=== PATIENT | male | born 1965 | race Two or more races ===

== ENCOUNTER 2025-03-24 11:13 | Emergency (ER) | payer MEDICAID, SELFPAY ==
[2025-03-24 12:03] VITALS: BP 115/80; PULSE 103; RESP 17; TEMP 36.9; O2SAT 98; BMI 22.4
--- NOTE | 2025-03-24 12:06 | XR_ITS ---
Examination: CT abdomen and pelvis without contrast. Coronal 3-D reconstructions. Sagittal 2-D reconstructions. Date and time of exam: March 24, 2025, 1254 hours INDICATIONS: Onset left-sided flank pain beginning 3 days ago CTDI: vol (mGy): 5.61 DLP: (mGycm): 340 Technique: Axial images of the abdomen have been obtained, 3 mm slice thickness Intravenous contrast material has not been administered. Low dose protocols were performed. One or more of the following dose reduction techniques were used; automated exposure control, adjustment of the mA and/or KV according to patient size, use of iterative reconstruction technique. Findings: Pneumonia left base Moderate left pleural fluid No visualized liver or splenic lesion Enlargement in the region of the body and tail of pancreas Mass of enlargement left kidney with necrotic solid mass measuring at least 10 cm in dimension There appear to be multiple periaortic pericaval lymph nodes Mild ascites Normal appendix Marked left pelvic lymphadenopathy Urinary bladder intact IMPRESSION: Limited noncontrast study Recommend repeat CT scan abdomen pelvis postcontrast to assess for mass involving the pancreas and also very large necrotic mass involving the left kidney with extensive abdominal pelvic lymphadenopathy
--- NOTE | 2025-03-24 12:07 | PD.EDRME ---
Rapid Medical Screening Exam RME Arrival date/time: 03/24/25 11:13 59-year-old male with no known medical history presents to the emergency room with a chief complaint of left flank pain and abdominal pain x 1 week I have greeted and performed a focused initial assessment of this patient. A comprehensive ED assessment and evaluation of the patient, analysis of all test results, and completion of the medical decision making process will be conducted by additional ED providers. Chief Complaint: Urogenital-Male Time Seen by Provider: 03/24/25 11:38 Vital signs: Vital Signs Temperature 98.4 F 03/24/25 12:03 Pulse Rate 103 H 03/24/25 12:03 Respiratory Rate 17 03/24/25 12:03 Blood Pressure 115/80 03/24/25 12:03 Pulse Oximetry (%) 98 03/24/25 12:03 Vital signs reviewed by provider: Yes Exam: Left CVA tenderness with palpation, epigastric abdominal pain with palpation Clear bilateral lung sounds Clinical Impression: Pyelonephritis/UTI/renal calculi
[2025-03-24] MEDS: HYDROcodone/APAP 5/325 TABLET 1 TAB PO (12:34)
[2025-03-24 12:46] LABS: Basophils # (Auto) 0.1 Thou/mm3 (0.0-0.2); Basophils % (Auto) 1 % (0-2.5); Eosinophils # (Auto) 0.1 Thou/mm3 (0.0-0.5); Eosinophils % (Auto) 1 % (0-10); Hematocrit 32.0 % (41.0-53.0); Hemoglobin 10.2 g/dL (13.5-16.0); Immature Granulocytes Auto 0.09 Thou/mm3 (0.00-0.00); Lymphocytes # (Auto) 2.1 Thou/mm3 (1.0-4.8); Lymphocytes % (Auto) 17 % (10-50); Mean Corpuscular HGB Conc 31.9 g/dl (31.0-37.0); Mean Corpuscular Hemoglobin 26.2 pg (25.0-35.0); Mean Corpuscular Volume 82 fL (80-100); Monocytes # (Auto) 1.0 Thou/mm3 (0.0-0.8); Monocytes % (Auto) 8 % (0-12); Neutrophils # (Auto) 8.6 Thou/mm3 (1.8-7.7); Neutrophils % (Auto) 73 % (37-80); Nucleated Red Blood Cell # 0.00 Thou/mm3 (0.00-0.00); Nucleated Red Blood Cell % 0 /100 WBC (0); Platelet Count 477 Thou/mm3 (140-440); RDW Standard Deviation 44.3 fL (35.1-43.9); Red Blood Count 3.90 Miln/mm3 (4.50-5.90); White Blood Count 11.8 Thou/mm3 (3.8-10.6)
[2025-03-24 13:06] LABS: Alanine Aminotransferase < 7 U/L (10-49); Albumin, Serum 4.6 gm/dL (3.4-4.8); Albumin/Globulin Ratio 1.5 (1.2-2.2); Alkaline Phosphatase 121 U/L (46-116); Anion Gap 10 (7-16); Aspartate Amino Transferase 15 U/L (0-34); BUN/Creatinine Ratio 16 Ratio (12-20); Bilirubin,Total 0.3 mg/dL (0.3-1.2); Blood Urea Nitrogen 11 mg/dL (9-23); Calcium 9.3 mg/dL (8.3-10.6); Calcium (Corrected) 9.3 mg/dL (8.5-10.1); Carbon Dioxide 26.2 mMol/L (20.0-31.0); Chloride 98 mMol/L (98-107); Creatinine (Component) 0.7 mg/dL (0.6-1.3); Estimated Creatinine Clearance 97.0 mL/min (>60); Globulin 3.1 gm/dL (2.3-3.5); Glucose 169 mg/dL (74-106); Lipase 48 U/L (12-53); Osmolality,Calculated 271 (275-295); Potassium 4.0 mMol/L (3.4-5.1); Sodium 134 mMol/L (136-145); Total Protein 7.7 gm/dL (5.7-8.2); eGFR > 60 See Note
[2025-03-24 13:52] LABS: Collection Type, Urine Clean Catch; Squamous Epithelial Cell,Urine 0 /hpf (0-5)
[2025-03-24 14:05] LABS: Bilirubin,Urine Negative (Negative); Blood,Urine Negative (Negative); Clarity,Urine Clear (Clear/Hazy); Color,Urine Yellow (Lt Yel-Yel); Glucose, Urine 2+ (Negative); Hyaline Casts,Urine < 1 /hpf (0-1); Ketones,Urine Negative (Negative); Leukocyte Esterase,Urine Negative (Negative); Nitrite,Urine Negative (Negative); PH,Urine 6.0 (5.0-7.0); Protein,Urine 1+ (Neg - Trace); RBC,Urine 2 /hpf (0-3); Specific Gravity,Urine 1.020 (1.001-1.035); Urobilinogen,Urine Negative mg/dL (0.0-1.0); WBC,Urine < 1 /hpf (0-5)
[2025-03-24 15:14] VITALS: BP 109/65; PULSE 100; RESP 18; TEMP 36.6; O2SAT 96
--- NOTE | 2025-03-24 15:32 | XR_ITS ---
Examination: CT abdomen with intravenous contrast CT pelvis with intravenous contrast 2-D coronal reconstructions 2-D sagittal reconstructions Date and time of exam: March 24, 2025, 1732 hours INDICATIONS: Left flank pain left lower abdominal pain beginning today. CTDI: vol (mGy) 5.73 DLP: (mGycm) 347 Technique: Multiple axial sections of the abdomen and pelvis have been obtained. 64 slice high-resolution scanner used. 3 mm axial sections have been obtained, post intravenous injection 60 cc Isovue 370 2-D sagittal, coronal reconstructions obtained. Low dose protocols were performed. One or more of the following dose reduction techniques were used; automated exposure control, adjustment of the mA and/or KV according to patient size, use of iterative reconstruction technique. Findings: Pneumonia left base with moderate left pleural effusion No visualized liver or splenic lesion Edema surrounding a diffusely enlarged pancreas Necrotic upper pole left renal mass, at least 12 x 19 x 11 cm Extensive mesenteric periaortic pericaval lymphadenopathy Markedly narrowed left renal vein versus tumor thrombus in the left renal vein Calcified wall of the gallbladder Bilateral common iliac adenopathy Fluid extends into the left pelvis Normal seminal vesicles Mild prostatomegaly Fat-containing inguinal hernias Moderate osteopenia IMPRESSION: Pneumonia left base with moderate left pleural effusion Edema surrounding the pancreas, consider acute pancreatitis 12 x 19 x 11 cm necrotic upper pole left renal mass Suspicious for tumor thrombus in the left renal vein Extensive abdominal mesenteric and pelvic lymphadenopathy Recommend MRI abdomen pelvis follow-up for staging pre and postcontrast
--- NOTE | 2025-03-24 15:34 | PD.EDADULT ---
ED General RME/HPI General Chief complaint: Urogenital-Male Stated complaint: L FLANK PAIN Time Seen by Provider: 03/24/25 11:38 Arrival date/time: 03/24/25 11:13 CC: Left flank pain left upper quadrant abdominal pain HPI onset 1 year ago with progressive increase in severity became severe in the last 24 hours now rating the pain a 10 out of 10. However at the time of the assessment the patient been given a Percocet currently the pain is a 3 on a 10 scale. Patient states pain been is intense enough to vomit at home. Patient denies bloody urination painful urination inability urinate constipation diarrhea chest pain shortness of breath or difficulty breathing. Patient is has a history of diabetes hypertension. RME / HPI RME / HPI narrative: 03/24/25 11:13 59-year-old male with no known medical history presents to the emergency room with a chief complaint of left flank pain and abdominal pain x 1 week I have greeted and performed a focused initial assessment of this patient. A comprehensive ED assessment and evaluation of the patient, analysis of all test results, and completion of the medical decision making process will be conducted by additional ED providers. Exam: Left CVA tenderness with palpation, epigastric abdominal pain with palpation Clear bilateral lung sounds Impression: Pyelonephritis/UTI/renal calculi Related Data Home Medications ?Medication ?Instructions ?Recorded ?Confirmed dapagliflozin propanediol 5 mg 5 mg PO QAM 03/24/25 03/24/25 tablet (Farxiga) ergocalciferol (vitamin D2) 1,250 1,250 mcg PO QWEEK 03/24/25 03/24/25 mcg (50,000 unit) capsule ferrous fumarate 325 mg (106 mg 325 mg PO QDAY 03/24/25 03/24/25 iron) tablet lisinopril 10 mg tablet 10 mg PO QDAY 03/24/25 03/24/25 naproxen 500 mg tablet 500 mg PO Q12H PRN pain 03/24/25 03/24/25 Allergies Allergy/AdvReac Type Severity Reaction Status Date / Time No Known Allergies Allergy Verified 03/24/25 11:16 Review of Systems Review of Systems Narrative Review of Systems: GEN: No fever, no chills, no weight loss EYES: No discharge, no visual changes, no pain HEENT: No ear pain, no congestion, no sore throat PULM: No shortness of breath, no cough, no congestion CV: No chest pain, no dyspnea on exertion, no palpitations GI: No nausea, no vomiting, no diarrhea, + pain, no constipation : No frequency, no urgency, no dysuria MUSC/SKEL: No joint pain, no back pain SKIN: No rash PSYCH: No hallucinations, no depression HEME/LYMPH: No easy bleeding or bruising tendencies NEURO: No weakness, no headache ED Exam Narrative Physical exam: [General: Thin but not emaciated, not in any acute distress Head normocephalic HEENT: Eyes, 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 Left eye tracking well. Mouth pink dry membranes uvula is midline swallow symmetrical phonation is normal all the subsystems of HEENT are within acceptable limits Neck is supple nontender no LAD no edema Chest equal chest rise nontender to palpation Respiratory: Clear to auscultation no wheezes crackles or rubs CV: Rate rhythm is regular no murmurs rubs or clicks Abdomen is slightly distended secondary soft tenderness in the left upper quadrant. Exquisite tenderness with flank palpation. Back: + left CVA tenderness no right sided CVA tenderness. No spinous process tenderness from cervical spine thoracic and lumbar spine Skin: Intact no petechiae rash induration ulceration or crepitus Extremities: Moving all extremity against resistance cap refill less than 2 seconds neurosensory intact Neuro: Awake alert oriented x3 Glascow coma 15 no focal deficits] Course Course Course Narrative: This is all new finding, family members mention that the patient is on iron pills secondary to anemia. I suspect the anemia is related to this necrotic mass. CT of the abdomen and pelvis with IV contrast shows that the patient has a 12 x 19 x 11 cm necrotic upper pole left renal mass also suspicious for a tumor thrombus in the left renal vein. Finally the patient also has extensive adeno mesenteric and pelvic lymph and adenopathy. At this time we will transfer for higher level nephrology consider possible nephrectomy Patient's case clinical presentation presented to [facility], and [facility]. He will decline the patient at [facility]'s urology's, Dr. Charles, stated the patient needs nephrectomy staging and an IVC and they are not able to provide the services they recommend [facility] or [facility]. Report on the patient's condition given to [facility] at 2052. Awaiting callback. At 2226, spoke with Dr. Bueno, urologist on-call at [facility] who stated this patient does not need emergent nephrectomy rather needs to be seen by oncology and urology, on an outpatient basis as his vital signs and laboratory findings are essentially stable. Therefore [facility] declines transfer. At 2239 Had a lengthy discussion with son of the patient, stating we have declines from tertiary center to receive the patient as it is not of an emergent nature but more of an urgent nature. And that I was advised as stated above from the urologist that he needs to follow-up outpatient urology set up for further workup. At this time I will discharge the patient home with pain medication and antibiotics. The patient's son declined this stating he is going to take the patient and drive directly to a tertiary care center. Quality Measures none Orders Category Date Time Status CT Screening NOW Care 03/24/25 15:32 Active Referral - Network Control Operators Supervisor Stat Cons 03/24/25 18:[address] abdomen pelvis w con Stat Exams 03/24/25 15:[address] abdomen pelvis wo con Stat Exams 03/24/25 12:06 Completed CBC Stat Lab 03/24/25 12:13 Completed CMP [Comprehensive Metabolic Panel] Stat Lab 03/24/25 12:13 Completed Lipase Stat Lab 03/24/25 12:13 Completed UA [Urinalysis] Stat Lab 03/24/25 13:46 Completed Urine Culture Stat Lab 03/24/25 13:46 Received HYDROcodone*/APAP 5/325 [[place] 5/325] Med 03/24/25 12:27 Discontinued 1 tab PO X1 ONE HYDROcodone/APAP 10/325 [[place] 10/325] Med 03/24/25 22:52 Once 1 tab PO X1 ONE HYDROmorphone INJ [Dilaudid Inj] Med 03/24/25 20:34 Discontinued 1 mg IVP X1 ONE Morphine* Inj Med 03/24/25 19:46 Discontinued 4 mg IVP X1 ONE Piper/Tazo 3.375 gm Premix [Zosyn] Med 03/24/25 22:53 Ordered 3.375 gm in 50 ml IV X1 Ringers Lactated 1000 ml [Lactated Ringers] 1,000 ml Med 03/24/25 17:52 Discontinued IV 999 mls/hr Ringers Lactated 1000 ml [Lactated Ringers] 1,000 ml Med 03/24/25 17:54 Discontinued IV 999 mls/hr Ringers Lactated 500 ml [Lactated Ringers] 500 ml Med 03/24/25 17:52 Discontinued IV 999 mls/hr cefTRIAXone/D5w 1gm IV premix [Rocephin/D5w 1gm IV Med 03/24/25 15:41 Discontinued premix] 1 gm in 50 ml IV X1 Vital Signs Vital signs: Vital Signs Temperature 98.4 F 03/24/25 12:03 Pulse Rate 103 H 03/24/25 12:03 Respiratory Rate 17 03/24/25 12:03 Blood Pressure 115/80 03/24/25 12:03 Pulse Oximetry (%) 98 03/24/25 12:03 Discharge Plan Plan Patient Disposition: HOME (Self Care) Patient condition on transfer: Stable Prescriptions/Referrals Prescriptions/Med Rec: No Action ergocalciferol (vitamin D2) 1,250 mcg (50,000 unit) capsule 1,250 mcg PO QWEEK naproxen 500 mg tablet 500 mg PO Q12H PRN (Reason: pain) Patient Comments: TAKE 1 TABLET BY MOUTH EVERY 12 HOURS WITH FOOD NEEDED FOR PAIN AND SWELLING ferrous fumarate 325 mg (106 mg iron) tablet 325 mg PO QDAY lisinopril 10 mg tablet 10 mg PO QDAY dapagliflozin propanediol [Farxiga] 5 mg tablet 5 mg PO QAM Referrals: Tutu Granados FNP [Primary Care Provider] - In 1 week Problem List Clinical Impression: Kidney mass, Abdominal pain Patient/Caregiver Discharge Instructions Education Materials: Abdominal Pain Additional Instructions: Follow-up with your primary care doctor, get a referral for oncology and/or urology. If is worsening of symptoms return the emergency room for reevaluation. Print Language: South African Stand Alone Forms: [place] Award Info., Work/School Release, Patient Portal Info Letter PA/FLAG CAR DRIVER Supervising Physician PA/FLAG CAR DRIVER Supervising Physician: Kushal Camp ENP [facility] Clinical Information Provided by: patient and family Medical Records reviewed [facility] Meds/Rx considered, not ordered None Labs/Rad/Tests considered, not ordered None EKG EKG not done Labs Labs: interpreted by nh Lab(s) Interpretation(s): CBC shows mild leukocytosis 11.8 and H&H 10.2 and 32.0 platelets of 477. CMP shows sodium 134, glucose at 169. No other renal impairment electrolyte imbalances no transaminitis or T. bili elevation. Lipase of 48 Urine shows 1+ protein 2+ glucose leukocyte esterase and nitrite negative. Imaging Imaging interpretation: interpreted by me Imaging Interpretation(s): CT shows pneumonia left base moderate left pleural effusion massive enlargement left kidney with necrotic solid mass measuring at least 10 cm in dimension along with multiple periaortic and pericaval lymph nodes. Medication Administration(s) Medication Administration History Hydrocodone Bitart/Acetaminophen (Hydrocodone/Apap 10/325 Tab) 1 tab PO X1 ONE Stop: 03/24/25 22:53 Piperacillin/Tazobactam/Dextrose (Zosyn) 3.375 gm in 50 mls @ 100 mls/hr IV X1 ONE; Protocol Stop: 03/24/25 23:22 Discontinued Medications Hydrocodone Bitart/Acetaminophen (Hydrocodone/Apap 5/325 Tablet) 1 tab PO X1 ONE Stop: 03/24/25 12:28 Last Admin: 03/24/25 12:34 Dose: 1 tab Documented By: SERGIO Hydromorphone HCl (Hydromorphone Inj 2 Mg/Ml Vial) 1 mg IVP X1 ONE Stop: 03/24/25 20:35 Last Admin: 03/24/25 21:02 Dose: 1 mg Documented By: MAREK Ceftriaxone Sodium/Dextrose (Rocephin/D5w 1gm Iv Premix) 1 gm in 50 mls @ 100 mls/hr IV X1 ONE Stop: 03/24/25 16:10 Last Infusion: 03/24/25 17:03 Dose: Infused Documented By: Admin: 03/24/25 16:33 Dose: 100 mls/hr Documented By: BY Lactated Ringer's (Lactated Ringers) 500 mls @ 999 mls/hr IV .Q31M ONE Stop: 03/24/25 18:22 Lactated Ringer's (Lactated Ringers) 1,000 mls @ 999 mls/hr IV .Q1H1M ONE Stop: 03/24/25 18:52 Last Infusion: 03/24/25 21:07 Dose: Infused Documented By: Admin: 03/24/25 18:00 Dose: 999 mls/hr Documented By: BY Lactated Ringer's (Lactated Ringers) 1,000 mls @ 999 mls/hr IV .Q1H1M ONE Stop: 03/24/25 18:54 Last Infusion: 03/24/25 21:06 Dose: Infused Documented By: Admin: 03/24/25 18:47 Dose: 999 mls/hr Documented By: BY Morphine Sulfate (Morphine Sulf Inj 4 Mg/Ml Vial) 4 mg IVP X1 ONE Stop: 03/24/25 19:47 Last Admin: 03/24/25 21:08 Dose: Not Given Documented By: SHER Non-Admin Reason: Cancelled by Provider
[2025-03-24] MEDS: cefTRIAXone/D5w 1gm IV premix 1 GM/50 ML BAG IV (16:33)
[2025-03-24] MEDS: RINGERS LACTATED 1000 ML 1,000 ML 999 ML IV ×2 (18:00→18:47)
[2025-03-24 18:01] VITALS: BP 132/79; PULSE 97; RESP 18; TEMP 37.2; O2SAT 97
[2025-03-24 18:42] VITALS: BP 139/85; PULSE 98; RESP 18; O2SAT 95
--- NOTE | 2025-03-24 19:07 | PC.CC ---
received transfer request from [facility] for nephro mass for nephrology or oncology. unable to start transfer process. Hand off report given to WILFRID Asencio. He will initiate transfer process.
[2025-03-24] MEDS: HYDROmorphone INJ 2 MG/ML VIAL 1 MG IVP (21:02)
--- NOTE | 2025-03-24 21:10 | PC.NURSE ---
CALLED [facility] ABOUT PT, BUBBA RODRIGEZ AT [facility]SF[facility] TALKED TO TERENCE AHUJA , INFORMATION AND PUSHED IMAGE DONE.
--- NOTE | 2025-03-24 21:13 | PC.NURSE ---
[facility] CALLED AND TOLD JEAN-CLAUDE PAYROLL ANALYST TO CALL EPI FOR HIGHER LEVEL OF CARE.
[2025-03-24 22:19] VITALS: BP 114/67; PULSE 106; RESP 18; TEMP 37; O2SAT 95
--- NOTE | 2025-03-24 22:30 | PC.NURSE ---
[facility] CALLED BACK AND TALKED TO JEAN-CLAUDE FINISH FILER THAT THEY ARE DECLINING PT.
[2025-03-24] MEDS: PIPER/TAZO 3.375 GM PREMIX 3.375 GM/50 ML BAG IV (23:32)
[2025-03-24 23:34] VITALS: BP 107/69; PULSE 109; RESP 19; O2SAT 94
== END 2025-03-25 00:06 | disposition home or self-care (01) ==
PROVIDERS: Nurse Practitioner Family; Emergency Provider Emergency Medicine; PCP Nurse Practitioner Family; Referring Provider Emergency Medicine
DX: N28.89 Other specified disorders of kidney and ureter (principal); J18.9 Pneumonia, unspecified organism; J90 Pleural effusion, not elsewhere classified
CPT/HCPCS: 36415; 74176; 74177; 74178; 80053; 81001; 83690; 85025; 87086; 96361; 96365; 96375; 99284; A4649; J0696; J1171; J2543; J7120; Q9967; A9270

== ENCOUNTER 2025-04-12 23:26 | Emergency (ER) | payer MEDICAID, SELFPAY ==
[2025-04-12 23:42] VITALS: BP 118/79; PULSE 111; RESP 18; TEMP 36.6; O2SAT 97; BMI 23.6
--- NOTE | 2025-04-12 23:46 | PD.EDRME ---
Rapid Medical Screening Exam E Arrival date/time: 04/12/25 23:26 This is a case of 59-year-old male with no medical history came in in the emergency room due to left-sided abdominal pain radiating to the left flank on and off for 1 month patient was here 3 weeks ago and was treated as renal mass due to worsening of the symptoms thus patient decided to sought consult here in the emergency room Chief Complaint: Abdominal Pain Time Seen by Provider: 04/12/25 23:32 Vital signs: Vital Signs Temperature 97.8 F 04/12/25 23:42 Pulse Rate 111 H 04/12/25 23:42 Respiratory Rate 18 04/12/25 23:42 Blood Pressure 118/79 04/12/25 23:42 Pulse Oximetry (%) 97 04/12/25 23:42 Oxygen Delivery Method Room Air 04/12/25 23:42 Exam: Moderate tenderness left lower abdomen left flank no guarding no rebound no rigidity Clinical Impression: Abdominal pain
[2025-04-12 23:59] LABS: Basophils # (Auto) 0.1 Thou/mm3 (0.0-0.2); Basophils % (Auto) 1 % (0-2.5); Eosinophils # (Auto) 0.0 Thou/mm3 (0.0-0.5); Eosinophils % (Auto) 0 % (0-10); Hematocrit 30.3 % (41.0-53.0); Hemoglobin 9.8 g/dL (13.5-16.0); Immature Granulocytes Auto 0.07 Thou/mm3 (0.00-0.00); Lymphocytes # (Auto) 1.5 Thou/mm3 (1.0-4.8); Lymphocytes % (Auto) 13 % (10-50); Mean Corpuscular HGB Conc 32.3 g/dl (31.0-37.0); Mean Corpuscular Hemoglobin 26.2 pg (25.0-35.0); Mean Corpuscular Volume 81 fL (80-100); Monocytes # (Auto) 1.1 Thou/mm3 (0.0-0.8); Monocytes % (Auto) 10 % (0-12); Neutrophils # (Auto) 8.7 Thou/mm3 (1.8-7.7); Neutrophils % (Auto) 75 % (37-80); Nucleated Red Blood Cell # 0.00 Thou/mm3 (0.00-0.00); Nucleated Red Blood Cell % 0 /100 WBC (0); Platelet Count 416 Thou/mm3 (140-440); RDW Standard Deviation 47.8 fL (35.1-43.9); Red Blood Count 3.74 Miln/mm3 (4.50-5.90); White Blood Count 11.5 Thou/mm3 (3.8-10.6)
--- NOTE | 2025-04-13 00:11 | XR_ITS ---
Examination: CTA chest, with intravenous contrast. CTA abdomen, with intravenous contrast. CTA pelvis, with intravenous contrast. 2-D sagittal and coronal reconstructions. 3-D reconstructions. Date and time of exam: April 13, 2025, 0220 hours, comparison CT abdomen pelvis March 24, 2025 INDICATIONS: 12 x 19 x 11 cm necrotic upper pole left renal mass on CT abdomen pelvis March 24, 2025, chest and abdominal pain today CTDI vol (mgy) 5.79 DLP (MGycm) 421 Technique: Multiple CTA images, 2.0 mm slice thickness, obtained chest, abdomen, pelvis, with the high-resolution 64 slice scanner. 100 cc Isovue-370 is administered intravenously. Sagittal and coronal 2-D reconstructions are obtained. 3-D reconstructions, angiographic images are obtained. 3-D postprocessing, including vascular maximum intensity projections. Low dose protocols were performed. One or more of the following dose reduction techniques were used; automated exposure control, adjustment of the mA and/or KV according to patient size, use of iterative reconstruction technique. Findings: No thoracic aortic aneurysmal dilatation or dissection No pulmonary artery filling defects No mediastinal lymphadenopathy. Large left pleural effusion with atelectasis left lung No visualized liver or splenic lesion 12 x 10 cm left renal mass invading the pancreas with bulky abdominal and pelvic lymphadenopathy Aorta is surrounded by lymphadenopathy No bowel obstruction Normal appendix No diverticulitis Intact urinary bladder IMPRESSION: Large left pleural effusion with left lung atelectasis 12 x 10 cm left renal mass invading the pancreas posteriorly Marked abdominal and pelvic lymphadenopathy No bowel obstruction Normal appendix
--- NOTE | 2025-04-13 00:12 | PD.EDABDPN ---
ED Abdominal Pain RME/HPI General Chief Complaint: Abdominal Pain Stated complaint: ABD PAIN Time seen by provider: 04/12/25 23:32 Arrival date/time: 04/12/25 23:26 Limitations: no limitations RME / HPI RME / HPI narrative: 04/12/25 23:26 This is a case of 59-year-old male with no medical history came in in the emergency room due to left-sided abdominal pain radiating to the left flank on and off for 1 month patient was here 3 weeks ago and was treated as renal mass due to worsening of the symptoms thus patient decided to sought consult here in the emergency room Dr. Tse?s Main ED Evaluation: 59yo male who was recently diagnosed with a kidney mass presents to the ED for worsening diffuse abdominal pain. After patient was discharged from this facility in February, patient was seen and evaluated at [facility]. Patient had a biopsy done and is currently pending the results. Patient states he remained comfortable with his prescribed medication up until the last couple days, in which he's been having worsening abdominal pain and nausea after he eats. Patient denies any fever, chills, or any other associated symptoms. Patient was told he will have to be referred to [facility] due to his insurance no longer being accepted at [facility]. Related Data Home Medications ?Medication ?Instructions ?Recorded ?Confirmed dapagliflozin propanediol 5 mg 5 mg PO QAM 03/24/25 03/24/25 tablet (Farxiga) ergocalciferol (vitamin D2) 1,250 1,250 mcg PO QWEEK 03/24/25 03/24/25 mcg (50,000 unit) capsule ferrous fumarate 325 mg (106 mg 325 mg PO QDAY 03/24/25 03/24/25 iron) tablet lisinopril 10 mg tablet 10 mg PO QDAY 03/24/25 03/24/25 naproxen 500 mg tablet 500 mg PO Q12H PRN pain 03/24/25 03/24/25 Previous Rx's ?Medication ?Instructions ?Recorded hydrocodone 5 mg-acetaminophen 300 1 tab PO BID PRN pain #14 tabs 04/13/25 mg tablet naloxone 4 mg/actuation nasal 4 mg intranasal Q2M PRN opioid 04/13/25 spray (Narcan) overdose #2 ea Allergies Allergy/AdvReac Type Severity Reaction Status Date / Time No Known Allergies Allergy Verified 04/12/25 23:27 ED Exam General Limitations: Present no limitations General appearance: Present alert and in no apparent distress Head Head exam: Present atraumatic and other (FEN) Eye Eye exam: Present normal appearance, PERRL and EOMI ENT ENT exam: Present normal exam, normal oropharynx and mucous membranes moist Neck Neck exam: Present normal inspection, full ROM and trachea midline Chest Chest inspection: Present normal inspection and symmetric chest wall rise Respiratory Respiratory exam: Present normal lung sounds bilaterally Cardiovascular Cardiovascular exam: Present normal rhythm, tachycardia and normal heart sounds Abdominal Exam Abdominal exam: Present soft, distention (mild) and tenderness; Absent guarding or rebound Extremities Exam Extremities exam: Present normal inspection and full ROM Neurological Exam Neurological exam: Present alert, oriented X3 and CN II-XII intact Psychiatric Psychiatric exam: Present normal affect and normal mood Skin Skin exam: Present warm, dry, intact and normal color Course Quality Measures none Orders Category Date Time Status CT Screening NOW Care 04/13/25 00:11 Active Insert IV NOW Care 04/13/25 00:[address] angio chest abdomen pelvis Stat Exams 04/13/25 00:11 Taken CBC Stat Lab 04/12/25 23:51 Completed Comprehensive Metabolic Panel Stat Lab 04/12/25 23:51 Completed INR [Prothrombin Time with INR] Stat Lab 04/13/25 00:00 Completed Lipase Stat Lab 04/12/25 23:51 Completed Troponin I Stat Lab 04/12/25 23:51 Completed Urinalysis Stat Lab 04/13/25 00:00 Completed HYDROmorphone INJ [Dilaudid Inj] Med 04/13/25 00:47 Discontinued 0.5 mg IVP X1 ONE Ringers Lactated 1000 ml [Lactated Ringers] 1,000 ml Med 04/13/25 00:46 Discontinued IV 999 mls/hr Vital Signs Vital signs: Vital Signs Temperature 97.8 F 04/12/25 23:42 Pulse Rate 111 H 04/12/25 23:42 Respiratory Rate 18 04/12/25 23:42 Blood Pressure 118/79 04/12/25 23:42 Pulse Oximetry (%) 97 04/12/25 23:42 Oxygen Delivery Method Room Air 04/12/25 23:42 Abdominal Pain MDM MDM Narrative MDM Narrative:: Scribe Attestation: 04/13/25 - IArin am scribing for and in the presence of Dr. Tse. Patient is a 59-year-old male with medical history notable for recent diagnosis of large left renal mass with lymphadenopathy that is in the emergency department with concerns of recurrent left-sided abdominal pain. Vital signs and exam as listed. Concern for worsening renal mass, thrombus, perforation, obstruction. Ordered labs, CT angio of the chest abdomen and pelvis. Offer medication for symptom relief. Labs with evidence of leukocytosis 11.5, no left shift, hemoglobin is 9.8, this is near patient's baseline, no significant acute metabolic or electrolyte disturbances, no significant transaminitis alk phos is 155, lipase is 88 previously 44. Urinalysis negative for leuk esterase negative for nitrites, 3 WBCs rare bacteria, patient without dysuria. CT chest abdomen and pelvis angio studies notable for large left renal mass infiltrating the pancreas and associated with neoplastic lymphadenopathy and neoplastic implants. No evidence of dissection or aneurysm or pulmonary thromboembolism. Patient does have a large left pleural effusion. Patient is on room air not dyspneic. Per chart review patient had similar findings on prior CTs performed in February of this year. On reevaluation patient symptoms significantly improved, no longer having pain, able to tolerate oral intake. Advised sounds it is important that he follow-up with his providers at [facility] to discuss the results of the biopsy as well as next [facility] his treatment. Given that [facility] also recommended that he establish care with [facility], I recommended that they continue reaching out to [facility] to discuss next steps management. Also recommended follow-up with her primary care doctor. Advised to return immediately if any worsening symptoms or new symptoms of concern. Patient and daughter in agreement. Patient data External records reviewed:: [facility] previous records (Per chart review, patient was seen here on 03/14/25 for abdominal pain/kidney mass.) Clinical information provided by:: patient Social determinants that could affect healthcare access:: none Patient has the following chronic illnesses:: kidney mass How is presenting disease/condition affected by chronic disease/condition?: caused by Evaluation data The following diagnostics were reviewed and interpreted by me:: lab results and radiology exam(s) Lab and/or radiology exams considered but not ordered:: none Interpretation Summary: [facility] Preliminary Report Draft Patient: KOBI HERRERA [facility]. Record#: [id number] Birthdate: 1965 Age/Sex: 59 / M Location: [facility] Attending Dr: Ordering Physician: Date of Service: Procedure(s): Accession Number(s): cc: ~ CT angiogram of the chest, abdomen and pelvis with intravenous contrast (axial sections with sagittal and coronal reformats) April 13, 2025 0220 hours Clinical History: Metastatic cancer, venous thrombosis. Comparison: None available at the time of this report. Findings: The thoracic aorta demonstrates mild atheromatous calcification without evidence of dissection or aneurysm. The origins of the right brachiocephalic, left common carotid and left subclavian arteries are patent. The abdominal aorta demonstrates mild atheromatous calcification without evidence of dissection or aneurysm. The celiac, superior mesenteric, inferior mesenteric and bilateral renal arteries are patent to the extent visualized. The common iliac, external iliac and internal iliac arteries are patent bilaterally. There is no filling defect within the pulmonary artery divisions to suggest pulmonary thromboembolism. No evidence of mediastinal mass or lymphadenopathy. There is no pericardial effusion. No pneumothorax. Large left pleural effusion. Left lower lobe atelectasis. Dilated left atrium. Coronary arteries calcifications. The liver, spleen, pancreas, and adrenals are unremarkable. Left renal mass measuring 10.5 cm associated extending and infiltrating the tail of the pancreas and the left adrenal gland. Neoplastic mediastinal lymphadenopathy. Neoplastic retroperitoneal lymphadenopathy. Neoplastic implants peripheral to the left perinephric space. Gallstones without evidence of acute cholecystitis. No evidence of bowel obstruction. No evidence of appendicitis. The urinary bladder is unremarkable. There is no free fluid, free air or abscess. The osseous structures are unremarkable. Fecal loading. Impression: 1. Large left renal mass infiltrating the pancreas and associated with neoplastic lymphadenopathy and neoplastic implants. 2. No evidence of aortic dissection or aneurysm. 3. No evidence of pulmonary thromboembolism. 4. Large left pleural effusion. 5. Coronary arteries calcifications. If acute myocardial infarction is clinically suspected consider correlation with troponin. 6. Dilated left atrium. Report Electronically Signed By: Hai Quintero 04/13/2025 3:35:56 AM [EST] Medications / Prescriptions Medications or Prescriptions considered but not ordered:: none Medication administrations:: Medication Administration History Discontinued Medications Hydromorphone HCl (Hydromorphone Inj 2 Mg/Ml Vial) 0.5 mg IVP X1 ONE Stop: 04/13/25 00:48 Last Admin: 04/13/25 01:04 Dose: 0.5 mg Documented By: BD Lactated Ringer's (Lactated Ringers) 1,000 mls @ 999 mls/hr IV .Q1H1M ONE Stop: 04/13/25 01:46 Last Infusion: 04/13/25 02:09 Dose: Infused Documented By: Admin: 04/13/25 01:04 Dose: 999 mls/hr Documented By: BD see above Consultations Consultation(s) initiated? (list below): No Diagnosis Differential diagnosis abdominal pain: other (See MDM) Most likely diagnosis given after review of the tests above:: see clinical impression below Admission Indicated Admission indicated?: not indicated Admission Request Was there a request for admission?: No Disposition Plan Disposition Plan: Discharge Discharge Attestation Discharge Attestation: The patient and all family members were given an opportunity to ask questions and understood the discharge instructions. Discharge instructions specifically effects, indications for sooner follow up or return to the emergency department, and the expected course of current diagnosis. Patient condition: Stable Discharge Plan Plan Patient Disposition: Home w/HOME HEALTH Prescriptions/Referrals Prescriptions/Med Rec: New hydrocodone-acetaminophen 5-300 mg tablet 1 tab PO BID MDD 2 pills PRN (Reason: pain) Qty: 14 0RF naloxone [Narcan] 4 mg/actuation spray,non-aerosol 4 mg intranasal Q2M PRN (Reason: opioid overdose) Qty: 2 0RF Rx Instructions: spray 1 dose into ONE nostril; alternate nostrils w each dose until help arrives No Action ergocalciferol (vitamin D2) 1,250 mcg (50,000 unit) capsule 1,250 mcg PO QWEEK naproxen 500 mg tablet 500 mg PO Q12H PRN (Reason: pain) Patient Comments: TAKE 1 TABLET BY MOUTH EVERY 12 HOURS WITH FOOD NEEDED FOR PAIN AND SWELLING ferrous fumarate 325 mg (106 mg iron) tablet 325 mg PO QDAY lisinopril 10 mg tablet 10 mg PO QDAY dapagliflozin propanediol [Farxiga] 5 mg tablet 5 mg PO QAM Referrals: No Primary/Family,Physician [Primary Care Provider] - In 1 week Problem List Clinical Impression: Left renal mass, Metastatic cancer, Abdominal pain, Elevated lipase Patient/Caregiver Discharge Instructions Education Materials: Cancer Overview Additional Instructions: Nieves tomografia hoy volvio a demostrar nieves tumor en nieves abdomen en el lado derecho. El tumor volvio a demostrar que esta involucrando el pancreas. Nieves funcion de rodolfo rinones sigue siendo normal. Es importante que llame a Carlos para discutir nieves gigi y proximos pasos en nieves tratamiento. Por favor regresar de inmediato si tiene empeoramiento de sintomas o cualquier sintoma de preocupacion. Print Language: Norwegian Stand Alone Forms: [facility] Award Info., Patient Portal Info Letter
[2025-04-13 00:23] LABS: Collection Type, Urine Clean Catch; Squamous Epithelial Cell,Urine 0 /hpf (0-5)
[2025-04-13 00:36] LABS: Alanine Aminotransferase 16 U/L (10-49); Albumin, Serum 4.5 gm/dL (3.4-4.8); Albumin/Globulin Ratio 1.3 (1.2-2.2); Alkaline Phosphatase 155 U/L (46-116); Anion Gap 10 (7-16); Aspartate Amino Transferase 36 U/L (0-34); BUN/Creatinine Ratio 21 Ratio (12-20); Bilirubin,Total 0.4 mg/dL (0.3-1.2); Blood Urea Nitrogen 21 mg/dL (9-23); Calcium 9.4 mg/dL (8.3-10.6); Calcium (Corrected) 9.4 mg/dL (8.5-10.1); Carbon Dioxide 25.6 mMol/L (20.0-31.0); Chloride 99 mMol/L (98-107); Creatinine (Component) 1.0 mg/dL (0.6-1.3); Estimated Creatinine Clearance 63.2 mL/min (>60); Globulin 3.6 gm/dL (2.3-3.5); Glucose 225 mg/dL (74-106); Lipase 88 U/L (12-53); Osmolality,Calculated 280 (275-295); Potassium 4.6 mMol/L (3.4-5.1); Sodium 135 mMol/L (136-145); Total Protein 8.1 gm/dL (5.7-8.2); Troponin I < 0.002 ng/mL (0.0-0.045); eGFR > 60 See Note
[2025-04-13 00:44] LABS: INR 1.0 (0.9-1.3); Prothrombin Time 10.9 Seconds (9.0-12.2)
[2025-04-13 00:47] LABS: Bacteria,Urine Rare; Bilirubin,Urine Negative (Negative); Blood,Urine Negative (Negative); Clarity,Urine Clear (Clear/Hazy); Color,Urine Yellow (Lt Yel-Yel); Glucose, Urine 4+ (Negative); Hyaline Casts,Urine < 1 /hpf (0-1); Ketones,Urine Trace (Negative); Leukocyte Esterase,Urine Negative (Negative); Nitrite,Urine Negative (Negative); PH,Urine 6.0 (5.0-7.0); Protein,Urine 1+ (Neg - Trace); RBC,Urine 4 /hpf (0-3); Specific Gravity,Urine 1.045 (1.001-1.035); Urobilinogen,Urine 2.0 mg/dL (0.0-1.0); WBC,Urine 3 /hpf (0-5)
[2025-04-13] MEDS: HYDROmorphone INJ 2 MG/ML VIAL 0.5 MG IVP (01:04)
[2025-04-13] MEDS: RINGERS LACTATED 1000 ML 1,000 ML 999 ML IV (01:04)
--- NOTE | 2025-04-13 03:36 | PRELIM_ITS ---
CT angiogram of the chest, abdomen and pelvis with intravenous contrast (axial sections with sagittal and coronal reformats) April 13, 2025 0220 hours Clinical History: Metastatic cancer, venous thrombosis. Comparison: None available at the time of this report. Findings: The thoracic aorta demonstrates mild atheromatous calcification without evidence of dissection or aneurysm. The origins of the right brachiocephalic, left common carotid and left subclavian arteries are patent. The abdominal aorta demonstrates mild atheromatous calcification without evidence of dissection or aneurysm. The celiac, superior mesenteric, inferior mesenteric and bilateral renal arteries are patent to the extent visualized. The common iliac, external iliac and internal iliac arteries are patent bi laterally. There is no filling defect within the pulmonary artery divisions to suggest pulmonary thromboembolism. No evidence of mediastinal mass or lymphadenopathy. There is no pericardial effusion. No pneumothorax. Large left pleural effusion. Left lower lobe atelectasis. Dilated left atrium. Coronary arteries calcifications. The liver, spleen, pancreas, and adrenals are unremarkable. Left renal mass measuring 10.5 cm associated extending and infiltrating the tail of the pancreas and the left adrenal gland. Neoplastic mediastinal lymphadenopathy. Neoplastic retroperitoneal lymphadenopathy. Neoplastic implants peripheral to the left perinephric space. Gallstones without evidence of acute cholecystitis. No evidence of bowel obstruction. No evidence of appendicitis. The urinary bladder is unremarkable. There is no free fluid, free air or abscess. The osseous structures are unremarkable. Fecal loading. Impression: 1. Large left renal mass infiltrating the pancreas and associated with neoplastic lymphadenopathy and neoplastic implants. 2. No evidence of aortic dissection or aneurysm. 3. No evidence of pulmonary thromboembolism. 4. Large left pleural effusion. 5. Coronary arteries calcifications. If acute myocardial infarction is clinically suspected consider correlation with troponin. 6. Dilated left atrium. Report Electronically Signed By: Hai Quintero 04/13/2025 3:35:56 AM [EST]
[2025-04-13 04:19] VITALS: BP 116/74; PULSE 102; RESP 17; TEMP 36.6; O2SAT 98
[2025-04-13 05:06] VITALS: RESP 16
== END 2025-04-13 05:09 | disposition home or self-care (01) ==
PROVIDERS: Nurse Practitioner Family; Emergency Provider Emergency Medicine
DX: N28.89 Other specified disorders of kidney and ureter (principal); D72.829 Elevated white blood cell count, unspecified; D49.89 Neoplasm of unspecified behavior of other specified sites; J90 Pleural effusion, not elsewhere classified; C79.9 Secondary malignant neoplasm of unspecified site; C80.1 Malignant (primary) neoplasm, unspecified; I25.10 Atherosclerotic heart disease of native coronary artery without angina pectoris; I51.7 Cardiomegaly; R74.8 Abnormal levels of other serum enzymes
CPT/HCPCS: 36415; 71275; 74174; 80053; 81001; 83690; 84484; 85025; 85610; 96361; 96374; 99284; A4649; J1171; J7120; Q9967